=== PATIENT | male | born 1975 | race Caucasian/White ===

== ENCOUNTER 2018-05-23 09:06 | Emergency (ER) | payer OTHER, SELFPAY ==
--- NOTE | 2018-05-23 09:17 | DI.RAD.S_ITS ---
PROCEDURE: XR KNEE RT 3V INDICATIONS: fall with lateral joint line tenderness, mild effusion TECHNIQUE: 3 views of the knee were acquired. COMPARISON: None. FINDINGS: Bones: Cortical irregularity involving lateral aspect of patella is seen with ill-defined linear lucencies suspicious for age indeterminant injury in this area. No other fracture or dislocation is seen. No suspicious bony lesions. Soft tissues: Soft tissue swelling over anterior and lateral aspect of patella and patella tendon is seen. Small joint effusion is seen. No suspicious soft tissue calcifications. IMPRESSION: Findings are concerning for age indeterminant injury involving lateral portion of patella. No other fracture or dislocation. Anterior soft tissue swelling. Dictated by: Shen Hubbard M.D. on 05/23/2018 at 9:37 Approved by: Shen Hubbard M.D. on 05/23/2018 at 9:39
--- NOTE | 2018-05-23 09:21 | ED.LOWEXIN ---
HPI - Extremity Injury (Lower) General Chief Complaint: Extremity Injury, Lower Stated Complaint: Right Knee Pain Time Seen by Provider: 05/23/18 09:07 Source: patient, family and EMS Mode of arrival: EMS Limitations: no limitations History of Present Illness HPI Narrative: 42-year-old male nonsmoker presents with his by EMS for evaluation of right knee pain. The patient was walking on the ice this morning and started slipping sideways toward his right and fell onto his right side while injuring his knee. He is unclear if it was a twisting motion or if he had direct contact with his knee. On the way down he did strike the back of his head but denies any loss of consciousness and has full recall of the event. He has had no nausea or vomiting takes no blood thinners and is not under the influence of alcohol or street drugs. His right knee hurts worse with ambulation and improves with rest. He denies any numbness, tingling or weakness. He has been battling what he thinks is an MCL injury in the right knee for some time MD complaint: knee injury Type of Injury: blunt Place: home Severity: moderate Relieving factors: immobilization Exacerbating factors: nothing Context: fall and direct blow Associated symptoms: able to partially bear weight Other symptoms: none Related Data Previous Rx's Medication Instructions Recorded ciprofloxacin HCl [Cipro] 500 mg PO BID #20 tab 03/27/16 Allergies Allergy/AdvReac Type Severity Reaction Status Date / Time amoxicillin [AMOXICILLIN] Allergy Unknown Unverified 07/18/17 12:40 Review of Systems Constitutional Denies chills, Denies fever(s), Denies lethargy and Denies weakness Eyes Denies change in vision, Denies eye discharge, Denies irritation and Denies loss of vision ENT Ears, Nose, Mouth, and Throat: Denies change in voice, Denies neck pain and Denies sore throat Cardiovascular Denies chest pain, Denies irregular heart rhythm, Denies lightheadedness, Denies palpitations, Denies dyspnea, Denies dyspnea on exertion and Denies orthopnea Respiratory Denies cough, Denies dyspnea, Denies dyspnea on exertion and Denies wheezing Gastrointestinal Gastrointestinal: Denies abdominal pain, Denies change in bowel habits, Denies diarrhea, Denies nausea and Denies vomiting Genitourinary Denies hematuria, Denies flank pain, Denies urinary incontinence and Denies urinary urgency Musculoskeletal Reports joint swelling, Reports limited range of motion and Denies neck pain Integumentary/Breasts Denies pruritus, Denies erythema, Denies rash and Denies wounds Neurologic Denies confusion, Denies loss of vision and Denies weakness Psychiatric Denies anxiety, Denies confusion, Denies depression, Denies homicidal ideation and Denies suicidal ideation Endocrine Denies palpitations Hematologic/Lymphatic Denies easy bruising Allergic/Immunologic Denies wheezing PFSH Social History Smoking Status: Never smoker Exam Narrative Exam Narrative: GEN: AOx3 and in mild distress, GCS 15 HEAD: small contusion on occiput, no abrasion or bleeding. No depressed skull fracture. NECK: No midline tenderness, painless full range of motion EYES: Pupils are equal, round, and reactive to light and accommodation. Extraoccular muscles are intact bilaterally. Mild right-sided scleral injection CHEST: Lungs are clear to auscultation bilaterally and free of wheezes, rales, or rhonchi. Heart rate is regular rhythm, there are no murmurs, clicks, rubs, or gallops. There is no chest wall tenderness. ABD: Abdomen is soft and nontender. There is no guarding or rebound. Bowel sounds are normal in all 4 quadrants. There is no mass or organomegaly. EXT: Full but painful range of motion of the right knee with a mild effusion. He has pain on the lateral joint line and ligamentous laxity in the distribution of the LCL. This injury is closed, isolated and neurovascularly intact SKIN: Warm, pink, and dry. No erythema or rash Initial Vital Signs Initial Vital Signs: Vital Signs Temperature 98.0 F 05/23/18 09:26 Pulse Rate 85 05/23/18 09:26 Respiratory Rate 20 05/23/18 09:26 Blood Pressure 164/101 H 05/23/18 09:26 Pulse Oximetry 100 05/23/18 09:26 Procedures Orthopedic Splinting/Casting Injury #1: Side: right Lower Extremity Injury Location: knee Lower Extremity Immobilizer: knee immobilizer Post splinting neuro exam: intact Post splinting vascular exam: intact Placed by: Nursing Course Orders Ordered: ED Orders 05/23/18 09:17 XR knee RT 3V Stat Reevaluation(s) Reevaluation #1: patient feels tremendous improvement with use of knee immobilizer and is able to ambulate out of the department without significant difficulty Consultations Consultation #1: discussion regarding case with on-call orthopedist who agrees with knee immobilizer and follow-up MDM - Extremity Injury (Lower) MDM Narrative Medical decision making narrative: Multiple etiologies for patient's symptoms considered including: [ internal derangement of knee, tibial plateau fracture, distal femur fracture versus other] Patient's symptoms improved or duration of stay with above-stated therapies. Findings and discharge diagnosis discussed with patient/family followed by verbalization of understanding Return precautions discussed with patient/family whom verbalize understanding. Discharge Plan Departure Patient Disposition: Home Clinical Impression: Internal derangement of knee Qualifiers: Laterality: right Qualified Code(s): M23.91 - Unspecified internal derangement of right knee Discharge Date/Time: 05/23/18 11:31 Interventions: ED Discharge Assessment Last Done: 05/23/18 11:31 Instructions: DI for Knee Sprain Activity Restrictions/Additional Instructions: *You have been diagnosed with [ internal derangement right knee ] *What to do: *Take medications as directed: [id number] Motrin (ibuprofen) on a schedule * encourage early range of motion of urine knee. Wear a mobilizer when walking *Follow up with [facility], call for an appointment. Let them know you were seen in the Emergency Department and that we ask that you be seen in follow up *Return to ER if you should have any new, worsening or concerning symptoms Prescriptions: No Action ciprofloxacin HCl [Cipro] 500 MG tablet 500 mg PO BID Qty: 20 RF: 0 Referrals: Michaela Carey MD [Physician] -
[2018-05-23 09:26] VITALS: BP 164/101; PULSE 85; RESP 20; TEMP 36.7; O2SAT 100
--- NOTE | 2018-05-23 11:23 | PC.NURSE ---
pt pulled out iv access, put coat on and was walking out. I stopped the pt asking if he was leaving and he said yes. i asked pt if i could check the iv site and he agreed. pt site covered with 2x2 and coban. pt left. pt return about 15min later. calm but anxiety reported by mom.
[2018-05-23 11:31] VITALS: BP 164/107; PULSE 86; RESP 18; O2SAT 100
== END 2018-05-23 11:31 | disposition home or self-care (01) ==
LOC: ED 10:41
PROVIDERS: Emergency Provider Emergency Medicine
DX: M23.91 Unspecified internal derangement of right knee (principal); W01.0XXA Fall on same level from slipping, tripping and stumbling without subsequent striking against object, initial encounter
CPT/HCPCS: 73562; 99283

== ENCOUNTER → 2018-06-21 16:34 | Outpatient (CLI) | payer OTHER, SELFPAY | PROVIDERS: Visit Provider Physician Assistant | DX: N39.0 Urinary tract infection, site not specified (principal); R31.9 Hematuria, unspecified | CPT/HCPCS: 87086 ==